=== PATIENT | female | born 1955 | race Caucasian/White ===

== ENCOUNTER 2017-03-06 17:49 | Emergency (ER) | payer OTHER ==
[~2017-03-06] VITALS: Ht 149.9 cm; Wt 55.0 kg
[~2017-03-06 17:49] MED LIST: LEVOTHYROXINE
[2017-03-06] MEDS ORDERED: ONDANSETRON 4MG ODT PO ONE (23:00)
[2017-03-06] MEDS ORDERED: IBUPROFEN 600MG TABLET PO ONE (23:00)
[2017-03-06 23:10] LABS: BASOPHILS % 0.6 % (0.0-2.0); EOSINOPHILS % 3.4 % (0.0-5.0); HEMATOCRIT. 37.5 % (36.0-48.0); HEMOGLOBIN. 12.5 g/dL (12.0-16.0); LYMPHOCYTES % 29.8 % (20.0-50.0); MEAN CORPUSCULAR VOLUME 93.2 fL (81.0-99.0); MEAN PLATELET VOLUME 8.3 fl (7.4-10.4); MONOCYTES % 6.5 % (2.0-8.0); NEUTROPHILS % 59.7 % (40.0-76.0); PLATELET 228 x1000/uL (130-400); RED BLOOD CELL COUNT 4.02 mill/uL (4.2-5.4); RED CELL DISTRIBUTION WIDTH 12.8 % (11.6-14.6)
[2017-03-06 23:15] LABS: CHLORIDE 104 mEq/L (98-107)
[2017-03-06 23:20] LABS: CARBON DIOXIDE 31 mEq/L (21-32)
[2017-03-07 00:21] VITALS: BP 119/78
== END 2017-03-07 00:29 | disposition home or self-care (01) ==
LOC: ER 17:49
DX: R51 Headache (principal); R11.0 Nausea; E11.9 Type 2 diabetes mellitus without complications; R42 Dizziness and giddiness; F32.9 Major depressive disorder, single episode, unspecified
CPT/HCPCS: 36415; 80048; 82962; 85025; 99284; Q0162

== ENCOUNTER 2019-07-16 16:25 | Emergency (ER) | payer OTHER ==
[~2019-07-16] VITALS: Ht 157.5 cm; Wt 60.0 kg
[2019-07-16] MEDS ORDERED: LORAZEPAM 0.5MG TABLET PO ONE (18:00)
[2019-07-16 19:02] VITALS: BP 120/71
== END 2019-07-16 19:04 | disposition home or self-care (01) ==
LOC: ER 16:25
DX: F41.9 Anxiety disorder, unspecified (principal); R00.2 Palpitations; R20.2 Paresthesia of skin; R06.4 Hyperventilation; F43.9 Reaction to severe stress, unspecified; E78.00 Pure hypercholesterolemia, unspecified; E03.9 Hypothyroidism, unspecified; E11.9 Type 2 diabetes mellitus without complications; F32.9 Major depressive disorder, single episode, unspecified
CPT/HCPCS: 93005; 99283

== ENCOUNTER 2019-10-13 11:16 | Emergency (ER) | payer OTHER ==
[~2019-10-13] VITALS: Ht 162.6 cm; Wt 59.0 kg
[2019-10-13] MEDS ORDERED: SODIUM CHLORIDE 0.9% 1,000 ML IV ONE (11:36)
[2019-10-13] MEDS ORDERED: ONDANSETRON HCL 4MG/2ML INJ IV STA (11:36)
[2019-10-13 11:54] VITALS: BP 112/69
[2019-10-13 12:08] LABS: BASOPHILS % 0.3 % (0.0-2.0); EOSINOPHILS % 0.3 % (0.0-5.0); HEMOGLOBIN. 12.1 g/dL (12.0-16.0); LYMPHOCYTES % 21.6 % (20.0-50.0); MEAN CORPUSCULAR HEMOGLOBIN 31.8 pg (28.0-32.0); MEAN CORPUSCULAR VOLUME 94.5 fL (81.0-99.0); MEAN PLATELET VOLUME 8.6 fl (7.4-10.4); MONOCYTES % 7.5 % (2.0-8.0); NEUTROPHILS % 70.3 % (40.0-76.0); PLATELET 141 x1000/uL (130-400); RED BLOOD CELL COUNT 3.81 mill/uL (4.2-5.4)
[2019-10-13 12:16] LABS: CLARITY URINE CLEAR (CLEAR); COLOR URINE YELLOW (YELLOW); KETONES URINE NEGATIVE (NEGATIVE); LEUKOCYTE ESTERASE URINE NEGATIVE (NEGATIVE); NITRITE URINE NEGATIVE (NEGATIVE); OCCULT BLOOD URINE NEGATIVE (NEGATIVE); PROTEIN URINE TRACE (NEGATIVE); SPECIFIC GRAVITY URINE 1.016 (1.005-1.030)
[2019-10-13 12:28] LABS: CHLORIDE 106 mEq/L (98-107)
== END 2019-10-13 14:00 | disposition home or self-care (01) ==
LOC: ER 11:28
DX: R42 Dizziness and giddiness (principal); R11.2 Nausea with vomiting, unspecified; E05.90 Thyrotoxicosis, unspecified without thyrotoxic crisis or storm; E11.9 Type 2 diabetes mellitus without complications; F32.9 Major depressive disorder, single episode, unspecified; E78.00 Pure hypercholesterolemia, unspecified
CPT/HCPCS: 36415; 80053; 81003; 84443; 85025; 93005; 96374; 99284; J2405; J7030

== ENCOUNTER 2019-12-14 10:58 | Emergency (ER) | payer OTHER ==
[~2019-12-14] VITALS: Ht 152.4 cm; Wt 50.0 kg
[2019-12-14 11:01] VITALS: BP 165/90
== END 2019-12-14 12:47 | disposition home or self-care (01) ==
LOC: ER 11:10
DX: F41.0 Panic disorder [episodic paroxysmal anxiety] (principal); R09.81 Nasal congestion; F32.9 Major depressive disorder, single episode, unspecified; E11.9 Type 2 diabetes mellitus without complications; E78.00 Pure hypercholesterolemia, unspecified; E03.9 Hypothyroidism, unspecified
CPT/HCPCS: 71045; 99283

== ENCOUNTER 2020-01-31 13:02 | Emergency (ER) | payer OTHER ==
[~2020-01-31] VITALS: Ht 149.9 cm; Wt 52.2 kg
[2020-01-31] MEDS ORDERED: LORAZEPAM 0.5MG TABLET PO ONE (14:30)
[2020-01-31] MEDS ORDERED: LOSARTAN POTASSIUM 25 MG TABLET PO ONE (14:30)
[2020-01-31] MEDS ORDERED: ACETAMINOPHEN 325MG TABLET PO ONE (14:30)
[2020-01-31 14:58] VITALS: BP 152/84
[2020-01-31 15:00] LABS: HEMATOCRIT. 37.6 % (36.0-48.0); HEMOGLOBIN. 12.6 g/dL (12.0-16.0); MEAN CORPUSCULAR HEMOGLOBIN 32.1 pg (28.0-32.0); MEAN CORPUSCULAR VOLUME 95.6 fL (81.0-99.0); MEAN PLATELET VOLUME 8.2 fl (7.4-10.4); PLATELET 222 x1000/uL (130-400); RED BLOOD CELL COUNT 3.93 mill/uL (4.2-5.4); RED CELL DISTRIBUTION WIDTH 13.6 % (11.6-14.6)
[2020-01-31 15:04] LABS: CHLORIDE 104 mEq/L (98-107)
[2020-01-31 16:08] LABS: PLATELET ESTIMATE NORMAL
== END 2020-01-31 16:33 | disposition home or self-care (01) ==
LOC: ER 13:08
DX: F41.9 Anxiety disorder, unspecified (principal); R51 Headache; R73.03 Prediabetes; Z98.890 Other specified postprocedural states
CPT/HCPCS: 36415; 80053; 85025; 93005; 99284

== ENCOUNTER 2020-10-06 15:33 | Emergency (ER) | payer OTHER ==
[~2020-10-06] VITALS: Ht 160 cm; Wt 68.0 kg
[2020-10-06 17:11] LABS: BASOPHILS % 0.5 % (0.0-2.0); EOSINOPHILS % 0.5 % (0.0-5.0); HEMATOCRIT. 35.8 % (36.0-48.0); MEAN CORPUSCULAR HEMOGLOBIN 31.6 pg (28.0-32.0); MEAN CORPUSCULAR VOLUME 94.5 fL (81.0-99.0); MEAN PLATELET VOLUME 7.7 fl (7.4-10.4); MONOCYTES % 5.6 % (2.0-8.0); NEUTROPHILS % 81.4 % (40.0-76.0); PLATELET 242 x1000/uL (130-400); RED BLOOD CELL COUNT 3.79 mill/uL (4.2-5.4); RED CELL DISTRIBUTION WIDTH 13.2 % (11.6-14.6)
[2020-10-06 17:18] LABS: CHLORIDE 109 mEq/L (98-107)
[2020-10-06 18:40] LABS: CLARITY URINE CLEAR (CLEAR); COLOR URINE YELLOW (YELLOW); KETONES URINE NEGATIVE (NEGATIVE); LEUKOCYTE ESTERASE URINE TRACE (NEGATIVE); NITRITE URINE NEGATIVE (NEGATIVE); OCCULT BLOOD URINE TRACE (NEGATIVE); PH URINE 6.5 (4.5-8.0); PROTEIN URINE NEGATIVE (NEGATIVE); UROBILINOGEN URINE 0.2 E.U./dL (0.2-1.0)
[2020-10-06] MEDS ORDERED: ASPIRIN 81MG TABLET PO ONE (22:45)
[2020-10-07 02:56] VITALS: BP 112/61
== END 2020-10-07 03:27 | disposition short-term general hospital (02) ==
LOC: ER 15:33
DX: R00.2 Palpitations (principal); R07.9 Chest pain, unspecified; I10 Essential (primary) hypertension; F41.9 Anxiety disorder, unspecified; F32.9 Major depressive disorder, single episode, unspecified; E03.9 Hypothyroidism, unspecified; M19.90 Unspecified osteoarthritis, unspecified site
CPT/HCPCS: 36415; 71045; 80053; 81003; 83605; 83690; 83880; 84484; 85025; 87040; 87086; 93005; 99285; Z7610

== ENCOUNTER 2022-03-13 15:53 | Emergency (ER) | payer MEDICAID, MEDICARE, OTHER ==
[~2022-03-13] VITALS: Ht 160 cm; Wt 62.0 kg
[2022-03-13 15:55] VITALS: BP 156/84
[2022-03-13] MEDS ORDERED: LORAZEPAM 0.5MG TABLET PO ONE (16:30)
[2022-03-13 17:16] LABS: BASOPHILS % 0.7 % (0.0-2.0); EOSINOPHILS % 4.5 % (0.0-5.0); HEMATOCRIT. 34.2 % (36.0-48.0); HEMOGLOBIN. 11.2 g/dL (12.0-16.0); LYMPHOCYTES % 41.2 % (20.0-50.0); MEAN CORPUSCULAR HEMOGLOBIN 31.9 pg (28.0-32.0); MEAN CORPUSCULAR VOLUME 96.9 fL (81.0-99.0); MONOCYTES % 6.4 % (2.0-8.0); NEUTROPHILS % 47.2 % (40.0-76.0); PLATELET 227 x1000/uL (130-400); RED BLOOD CELL COUNT 3.53 mill/uL (4.2-5.4); RED CELL DISTRIBUTION WIDTH 14.7 % (11.6-14.6)
[2022-03-13 17:18] LABS: CHLORIDE 106 mEq/L (98-107)
[2022-03-13 17:37] LABS: T4 FREE 0.67 ng/dL (0.76-1.46)
== END 2022-03-13 18:54 | disposition home or self-care (01) ==
LOC: ER 15:53
DX: F41.9 Anxiety disorder, unspecified (principal); R53.1 Weakness; R94.5 Abnormal results of liver function studies; F32.A Depression, unspecified; E03.9 Hypothyroidism, unspecified; M19.90 Unspecified osteoarthritis, unspecified site
CPT/HCPCS: 36415; 71045; 80053; 84439; 84443; 85025; 93005; 99285

== ENCOUNTER 2022-09-23 15:54 | Emergency (ER) | payer MEDICARE, MEDICAID ==
[~2022-09-23] VITALS: Ht 162.6 cm; Wt 75.0 kg
[2022-09-23 16:09] VITALS: BP 131/76
[2022-09-23 21:26] LABS: BASOPHILS % 0.6 % (0.0-2.0); EOSINOPHILS % 1.1 % (0.0-5.0); HEMATOCRIT. 39.4 % (36.0-48.0); HEMOGLOBIN. 13.1 g/dL (12.0-16.0); LYMPHOCYTES % 37.2 % (20.0-50.0); MEAN CORPUSCULAR HEMOGLOBIN 30.8 pg (28.0-32.0); MEAN CORPUSCULAR VOLUME 92.3 fL (81.0-99.0); MEAN PLATELET VOLUME 8.2 fl (7.4-10.4); MONOCYTES % 5.9 % (2.0-8.0); NEUTROPHILS % 55.2 % (40.0-76.0); PLATELET 245 x1000/uL (130-400); RED BLOOD CELL COUNT 4.27 mill/uL (4.2-5.4)
[2022-09-23 21:35] LABS: CHLORIDE 107 mEq/L (98-107)
== END 2022-09-23 21:50 | disposition home or self-care (01) ==
LOC: ER 15:54
DX: F41.9 Anxiety disorder, unspecified (principal); I49.9 Cardiac arrhythmia, unspecified; F32.9 Major depressive disorder, single episode, unspecified; E03.9 Hypothyroidism, unspecified; M19.90 Unspecified osteoarthritis, unspecified site
CPT/HCPCS: 36415; 71045; 80053; 83520; 85025; 93005; 99285